=== PATIENT | female | born 1975 | race Caucasian/White ===

== ENCOUNTER → 2018-09-19 16:52 | Outpatient (CLI) | payer MEDICAID, SELFPAY ==
--- NOTE | 2018-09-19 16:57 | CT_ITS ---
STUDY: CT ABDOMEN AND PELVIS WITH AND WITHOUT CONTRAST REASON FOR EXAM: Female, 43 years old. RADIATION DOSAGE (If Supplied By Facility): CTDIvol = ( 19.75 ) mGy, DLP = ( 2754.63 ) mGycm TECHNIQUE: Transaxial images were obtained from the dome of the diaphragm to the symphysis pubis without oral contrast. Isovue 300 100 IV was administered. Sagittal and coronal images were reconstructed. Individualized dose optimization techniques were used for this CT. COMPARISON: None. FINDINGS: The lung bases are clear. The liver is normal. No dilated intrahepatic biliary radicles. A contracted gallbladder with no gallstones. The spleen is normal. The pancreas is normal. Both adrenals are normal. The kidneys are normal with no masses, calculi or hydronephrosis The stomach is normal. There is no bowel distention, acute appendicitis or diverticulitis. No constricting lesions are seen in large bowel. The abdominal wall is intact with no hernias. There is no ascites or any free intraperitoneal air. No indication of epiploic appendagitis The vascular structures in the retroperitoneum are normal. There is no retrocrural, retroperitoneal or mesenteric adenopathy. The bones and joints are normal. The urinary bladder is normal.--A partial hysterectomy.. There is no inguinal or pelvic adenopathy. There is no inguinal hernia. . CT/CT Abd/Pelvis W/WO Contrast IMPRESSION: No acute findings in the abdomen or pelvis. Specifically there is no acute appendicitis or diverticulitis. The kidneys are normal. The urinary bladder is normal Electronically Signed: Roldan Philippe MD at 4:55 EDT Tel , Service support ,
== END ==
DX: R31.0 Gross hematuria (principal)
CPT/HCPCS: 74178; Q9967

== ENCOUNTER 2019-04-30 23:47 | Emergency (ER) | payer MEDICAID, SELFPAY ==
[2019-04-30 23:48] VITALS: BP 131/76; PULSE 92; RESP 14; TEMP 36.9; O2SAT 97; BMI 31.7
--- NOTE | 2019-05-01 00:47 | ED.DCSUM_ITS ---
History of Present Illness Chief Complaint: Eye Problem Informant: Patient Location: Left Eye Onset: Today Context: Sudden Onset Timing: Continuous Current Severity: Severe Associated Symptoms - Eyes: Burning, Foreign body sensation Visual Changes: left: Blurred vision History of injury: Uncertain Visual correction: None Narrative: Patient is a 43-year-old female with no significant past medical history presenting with sudden onset of left eye pain. Patient states she is doing a lot of yard work earlier today. This evening she suddenly felt that there was a foreign body in her eye and that her eye was being scratched. She irrigated her eye under copious amount of water at home but still had a lot of pain so she came to the emergency room. Patient does not wear corrective lenses. She denies any other complaints. She does not have an blueprint processor. She denies any associated photophobia but does have pain with trying to open her eye. She denies any excessive tearing. She denies any trauma to her face or her eye. She thinks her last tetanus was less than 5 years ago. Past Medical History - Allergies and Home Meds Allergies/Adverse Reactions: Allergies diazepam [From Valium] Adverse Reaction (Verified 04/30/19 23:47) Other OPPOSITE EFFECT OF MED/ UPSET, ENRAGED Penicillins [PCN] Adverse Reaction (Verified 04/30/19 23:47) Nausea/Vom/Diarrhea Primary Care Physician: Artemio Weaver MD [STAFF PHYSICIAN] - [facility],Sarah Beth Rosenberg [Primary Care Provider] - Past Medical History: None Surgical History: noncontributory Smoking Status: Never smoker Review of Systems Eyes: Reports: - - Left eye pain Physical Exam Visual Acuity: Uncorrected Eyelid: Normal inspection Right Conjunctiva/Sclera: Normal inspection Left Conjunctiva/Sclera: No foreign body, Diffuse focal injection Right Cornea: Normal inspection Left Cornea: Tetracaine instilled, Corneal abrasion, Fluorescein dye uptake - And linear streaking pattern, Foreign body - Small flake over iris at 4 o'clock position Extraocular Motion: Normal exam, No pain Pupils: Normal accomodation, PERRL Vital Signs/Narrative: Vital Signs Temp Pulse Resp BP Pulse Ox 04/30/19 23:48 98.5 F 92 14 131/76 H 97 Inital Vital Signs reviewed: Yes General: Well nourished, Well developed Head: Normocephalic, Atraumatic ENT: Moist mucous membranes, TM's clear Cardiovascular: Regular rate Respiratory: No distress Extremities: Nontender, No edema Skin: Normal color, No rash Neurological: Alert, Oriented x3, Cranial nerves II-XII grossly intact Psychological: Normal affect, Normal Mood, Tearful Diagnostic/Tx/Re-eval - Treatment and Re-Evaluation Foreign body removal: Cotton tip swab Residual rust ring: No Removed with eye tsering: No Tetracaine: left eye - Medical Decision Making Patient has a small foreign body in her left eye. Lids are everted and I do not see any retained foreign body there. She does have corneal abrasion but negative Sylvia sign. Patient has significant improvement of her pain with tetracaine. She is given Motrin 600 mg. She started on erythromycin ointment. She is referred to ophthalmology for follow-up. Patient is counseled on signs and symptoms requiring return to the emergency room. Patient verbalizes agreement and understand this plan. Patient discharged home in stable and improved condition. Disposition: Home ED Disposition - Plan for ED Patient: Disposition: Home or Assisted Living Instructions: CORNEAL FOREIGN BODY, Removed Referrals: Sarah Beth Bruno [Primary Care Provider] - Artemio Weaver MD [STAFF PHYSICIAN] - Additional Instructions: Use tetracaine very sparingly, no more than 4 times a day for pain. Take ibuprofen as needed for pain. Follow-up with ophthalmology in the next few days especially if you are still having symptoms. Return to the emergency room if you have further concerns or questions.
[2019-05-01] MEDS: Tetracaine 0.5% Ophthalmic Bottle OPHTHALMIC (00:58)
[2019-05-01] MEDS: Fluorescein 1 MG STRIP 1 STRIP OPHTHALMIC (00:58)
[2019-05-01] MEDS: Ibuprofen 600 MG Tablet PO (01:03)
[2019-05-01 01:11] VITALS: BP 128/70; PULSE 74; RESP 16; O2SAT 98
== END 2019-05-01 01:12 | disposition home or self-care (01) ==
PROVIDERS: Emergency Provider Emergency Medicine
DX: T15.02XA Foreign body in cornea, left eye, initial encounter (principal); X58.XXXA Exposure to other specified factors, initial encounter; Y93.9 Activity, unspecified; Y92.9 Unspecified place or not applicable
CPT/HCPCS: 99283

== ENCOUNTER 2022-07-11 10:27 | Emergency (ER) | payer MEDICAID, SELFPAY ==
[2022-07-11 10:28] VITALS: BP 133/89; PULSE 82; RESP 18; TEMP 36.6; O2SAT 99; BMI 32.3
--- NOTE | 2022-07-11 11:14 | EX.ED.DYSGE1 ---
HPI History of Present Illness Chief Complaint: Ear Problem Informant: patient Narrative Narrative: 47-year-old female presenting with left ear pain. Patient states this started on Tuesday. She has tried [id number] medications without relief. She denies fever or other complaints. She has not used Q-tips. Prior similar symptoms: Yes Recent Illness/Hospitalization: No PFSH PFSH Medical History no medical history Home Medications cefdinir 300 mg capsule 300 mg PO BID 7 days #14 caps 07/11/22 [Rx Last Taken Unknown] Allergy/AdvReac Type Severity Reaction Status Date / Time diazepam [From Valium] AdvReac Other Verified 07/11/22 10:29 Penicillins [PCN] AdvReac Nausea/Vom/ Verified 07/11/22 10:29 Diarrhea Surgical History no surgical history Social History Smoking Status: Never smoker ROS ROS ED Constitutional Constitutional ED: Denies fever(s) Eyes Eyes: Denies change in vision ENT ENT ED: Reports ear pain left; Denies rhinorrhea or sore throat Cardiovascular Cardiovascular: Denies chest pain or palpitations Respiratory/Chest Respiratory/Chest: Denies cough or dyspnea Gastrointestinal Gastrointestinal: Denies abdominal pain, diarrhea, nausea or vomiting Genitourinary Genitourinary ED: Denies dysuria Musculoskeletal Musculoskeletal: Denies myalgias Integumentary Denies rash Neurologic Neurologic: Denies headache(s) Psychiatric Psychiatric: Denies suicidal thoughts EXAM Physical Exam Const Vital Signs: 07/11/22 10:28 07/11/22 12:00 Temperature 97.9 F Temperature Source Temporal Pulse Rate 82 Respiratory Rate 18 16 Blood Pressure 133/89 H Blood Pressure Mean 103 Pulse Ox 99 Oxygen Delivery Method Room Air Positive well nourished and well developed General Appearance ED: well developed HEENT Reports normocephalic, head/scalp atraumatic and moist mucous membranes HEENT Narrative: left TM erythematous and bulging. Pain with movement of tragus. Pharynx is normal. Eyes PERRL and EOMs intact bilaterally Neck supple Neck Narrative: No meningismus. General: Negative for tenderness Chest Wall inspection of chest normal Resp normal respiratory effort and clear to auscultation bilaterally Cardio regular rate and regular rhythm GI non-tender and non-distended Palpation: soft; Negative for guarding or rebound tenderness present no CVA tenderness Extremity normal to inspection Neuro oriented x3 Sensorium / Orientation: alert Psych mental status grossly normal Skin no rashes or lesions noted MDM MDM MDM Narrative Medical decision making narrative: Patient has left TM erythema as well as pain external ear. She was treated with neomycin/polymyxin drops and cefdinir. Advised to follow-up with primary care physician. Advised return to ED for worsening complaints. Discharge Plan Triage Chief Complaint: Ear Problem ED Provider: Pratima Coronado Dx/Rx/DC Orders Clinical Impression: Otitis media, Otitis externa Instructions: ED Otitis Media Antibiotic ..., ED External Ear Infection (Adult) Prescriptions: New cefdinir 300 mg capsule 300 mg PO BID 7 Days Qty: 14 0RF Primary Care Provider: Care Physician,No Primary Referrals: Zack Haney MD [Non-Staff] - NOT,DEFINED [Non-Staff] - Disposition Disposition: Home, Self Care Discharge Date/Time: 07/11/22 12:05
[2022-07-11 12:00] VITALS: RESP 16
[2022-07-11] MEDS: Neomycin/Polymyxin/Dexameth 5ML OPTH.BTL 4 DRP OTIC (12:04)
== END 2022-07-11 12:05 | disposition home or self-care (01) ==
LOC: ED 11:23
PROVIDERS: Emergency Provider Emergency Medicine; Visit Provider Emergency Medicine
DX: H66.92 Otitis media, unspecified, left ear (principal); H60.92 Unspecified otitis externa, left ear
CPT/HCPCS: 99282